=== PATIENT | female | born 1980 | race African-American/Black ===

== ENCOUNTER 2016-11-21 09:45 | Inpatient (IN) | payer OTHER ==
[~2016-11-21] VITALS: Ht 162.6 cm; Wt 81.6 kg
[2016-11-21] MEDS ORDERED: PRENATAL TABLE1 EAC2 PO (12:03)
--- NOTE | 2016-11-21 12:19 | History & Physical ---
General Information and HPI MD Statement: I have seen and personally examined GINNY WOOD and documented this H&P. The patient is a 36 year old female at [40] weeks and [4] days gestation who presented with a chief complaint of [ 3 para 2 woman with cervical dilation of 3-4 cm's who is past her due date was advised for induction of labor ]. Source of Information: patient, old records History of Present Illness: 36-year-old 2 para 2001 LMP of 02/11/2016 and KALA of 11/17/2016 was admitted at 40-4/7 weeks for induction of labor due to the fact that her last office exam she was 3-4 cm dilated. Issues for this #1 AMA. Her age is age 36. She had ATU anatomy scan that was within normal limits she's had weekly biophysical nonstress tests since 35 weeks that have been reassuring #2 on at 30 weeks measured size less than dates on ultrasound at that time showed her to be 44th percentile. 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 10 oz. 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 Home Who Do You Live With? spouse, child Primary Language: [place] Smoking Status: Never Smoked ETOH Use: denies use Illicit Drug Use: denies illicit drug use Review of Systems Review of Systems: Negative for cardiopulmonary GI complaints Exam & Diagnostic Data Last 24 Hrs of Vital Signs/I&O Temp 98.4 pulse 88 respirations 16 blood pressure 122/82 pulse ox 99% room air Intake & Output 11/21 1600 / 0800 11/21 0000 Intake Total Output Total Balance Patient 180 lb Weight Obstetric Exam Wgt Gained During : 32 pounds Pelvimetry: Proven 7 pounds Dilation (cm): 3 Effacement (%): 80 Station: 0 Membranes: intact Fluid: unknown Fundal Height (cm): 38 Multiple Gestation? No Contractions: Every 4-6 on her own #1 - FHR Baseline: 130 Category: 1 Estimated Weight: 7 lbs. 2 oz. Presentation: Vertex Patient for Induction? Yes Davenport Score Davenport Score Response Value Cervix Position: posterior 0 Cervix Consistency: soft 2 Cervix Effacement: >80% 3 Cervix Dilation: 3-4 cm 2 Cervix Station: -2 1 Total 8 Physical Exam General Appearance Alert, Oriented X3, Cooperative, No Acute Distress Skin No Significant Lesion Cardiovascular Regular Rate Lungs Normal Air Movement Abdomen Normal Bowel Sounds, Soft, No Tenderness, No Hepatospenomegaly, gravid uterus fundal height 38 cm's estimated weight 7 lbs. 2 oz. vertex presentation heart rate 130s category 1 occasional mild contraction Neurological Normal Gait, Normal Speech Extremities No Tenderness/Swelling Reproductive (FEMALE) Normal female genitalia Labs Blood Type & Rh: B+ Antibody Screen: N Hct/Hgb & Platelets #1: 12.3/36.7, platelet count 212,000 Hct/Hgb & Platelets #2: 12.0/37.3 platelet count 212,000 Rubella: I VDRL #1: N VDRL #2: N HbsAg: N HIV #1: N HIV #2 N 1 Hr P 3 Hr PG: N/A Group B Strep: N Initial Ultrasound: 06/03/2016's single intrauterine 16 weeks 1/7 days size equals dates equals ultrasound Anatomy Ultrasound: ATU anatomy scan 07/01/2016 20 weeks 1/7 days negative aneuploidy cervix 3.7 scans normal ovaries NL uterus Ultrasound for EFW: At 32. She measured size less than dates growth percentile showed her to be 45th percentile for pounds 3 ounces Genetic Testing: Declined invasive testing missed first trimester screen but had a negative quad screening Last 24 Hrs of Labs/Sylvain: Laboratory Tests 11/21/16 1000: CBC w Diff Pending, WBC Pending, RBC Pending, Hgb Pending, Hct Pending, MCV Pending, MCH Pending, RDW Pending, Plt Count Pending, MPV Pending, PUBS MCHC Pending, Urine Color Pending, Urine Clarity Pending, Urine pH Pending, Ur Specific [place] Pending, Urine Protein Pending, Urine Ketones Pending, Urine Nitrite Pending, Urine Bilirubin Pending, Urine Urobilinogen Pending, Ur Leukocyte Esterase Pending, Ur Microscopic SEDIMENT EXAMINED, Urine RBC Pending, Urine Hemoglobin Pending, Urine Glucose Pending Assessment/Plan Assessment/Plan: Interim at 40 weeks 4/7 days with advanced cervical dilation a 3 para 2. Plan is induction of labor with Pitocin and AROM when clinically safe. Patient is group B strep negative should not require antibiotic prophylaxis in labor. Plan is anticipate normal vaginal delivery As Ranked By This Provider Problem List: 1. 2. Post-dates Core Measures/Miscellaneous Venous Thromboembolism VTE Risk Factors: / VTE Contraindications: Abn Clotting Times (FALL RISK) VTE Diagnosis: No Beta Emilia Is Beta Emilia a Home Med? No If No, Why Not? NOT INDICATED Antibiotics Is Patient on Antibiotics? No Attending MD Review Statement Attending Statement Attending MD Statement: examined this patient, discussed with family, reviewed EMR data (avail), discussed w/nursing Attending Assessment/Plan: Katelynn Edgar
[2016-11-21 12:40] LABS: ABSOLUTE BASOPHIL COUNT 0 /CUMM (0.0-0.2); ABSOLUTE EOSINOPHIL COUNT 0.1 /CUMM (0.0-0.7); ABSOLUTE GRANULOCYTE CT 4.8 /CUMM (1.4-6.5); ABSOLUTE LYMPH COUNT 1.1 /CUMM (1.2-3.4); ABSOLUTE MONOCYTE COUNT 0.8 /CUMM (0.10-0.60); BASOPHIL % 0.6 % (0.0-2.0); EOSINOPHIL % 1.5 % (0-5); GRANULOCYTE % 69.9 % (42.2-75.2); HEMATOCRIT 36.2 % (37-47); MEAN CORPUSCULAR HGB 29.1 PG (27.0-31.0); MEAN CORPUSCULAR HGB CONC 33.4 G/DL (33.0-37.0); MEAN CORPUSCULAR VOLUME 87.2 FL (81.0-99.0); MEAN PLATELET VOLUME 9.1 FL (7.4-10.4); PLATELET COUNT 185 /CUMM (130-400); RBC DISTRIBUTION WIDTH 14.6 % (11.5-14.5); RED BLOOD CELL CT 4.15 /CUMM (4.20-5.40); WHITE BLOOD CELL COUNT 6.8 /CUMM (4.8-10.8)
--- NOTE | 2016-11-21 15:21 | PN- OBGYN ---
Surgical Brief Attending Note Brief Attending Note: Update: Pt doing well - tolerating contractions just fine Pitocin @ 7 mu contractions Q 2 to 3 min FHR 140's Cat 1 Cx 5 cm 100% 0 station AROM: Clear fluid Progress in Labor: Anticipate MAYNOR Edgar MD
--- NOTE | 2016-11-21 18:30 | Labor & Delivery Summary ---
Delivery Summary Vaginal Delivery: Vaginal: vertex spontaneous delivery Episiotomy/Lacerations: Episiotomy/Lacerations: nikita-urethral lacerations - bilateral no suture needed Type: periurethral Repair: none Anesthesia: none Placenta: Placenta: spontanteous, normal, 3 vessel, Short cord Anesthesia: none Cord PH Value: n/a Baby's Weight: 7#7oz Apgars - 1 Min: 9 Apgars - 5 Min: 9 Additional Comments: Pt progressed to fully @ 16:55 with the urge to push. Pt initially was not effective with the pushing efforts. Decrease in FHR from 140 -150 to 90 - 100's x 6 to 7 minutes. (pitocin turned off, change in maternal positioning, O2 by mask) VTX stayed @ +2 / +3 station. Discussed possible need for vacuum extraction if not push well with the "next" contraction. Pt delivered the VTX with the next contraction, No Nuchal cord. Short umbilical cord. Time of delivery 16:55. Intact perineum. bilat small nikita-urethral lacerations- no suture needed. Live viable female. 7#7oz APGARS 9/9/9 Placenta delivered intact NL configuration - short cord- 3 VC. No cervical or vaginal lacerations ERLIN SALGADO MD
--- NOTE | 2016-11-21 20:38 | PN- OBGYN ---
Surgical Brief Attending Note Brief Attending Note: CTSP: MINIMAL BLEEDING PP BUT THEN AN EVAL BY THE RN @ 18:45, SHOWED UTERUS ABOVE UMBILICUS AND ++ VAGINAL BLEEDING WITH FUNDAL PRESSURE - "GRAPEFRUIT" SIZED CLOT WITH FUNDAL PRESSURE. UPPER UTERUS FIRM TO PALPATION. PULSE IN LABOR IN 80'S, PT'S PP PULSE NOW IN 90'S WITH A NL BP. MD EXAM SHOWED LARGE AMOUNT OF CLOT DISTENDING THE UPPER VAGINA. CLOT CLLEARED FORM VAGINA AND LOW SEGMENT - @ 1000ML. GAUTAM CATHETER PLACED- (50 ml JORDIN URINE). NEW IV STARTED (PT INADVERTENTLY PULLED OUT HER IV @ DELIVERY - WAS GIVEN 10 U IM PITOCIN, PP). PT WAS GIVEN 200 mcg METHERGINE, PITOCIN @ 30 U/1000ML @ 200 ML/HR, AND [address] LYNCH CALLED, IN CASE WE HAD TO GO BACK TO THE OR. DR LYNCH STARTED A SECOND IV SITE AND PT GIVEN 1000 ML BOLUS OVER 30 MIN. NO SIGNIFICANT FURTHER BLEEDING NOTED. VAGINAL EXAM SHOWED NO CLOT COLLECTION IN THE VAGINA. MATERNAL PULSE NOW 60 -70'S. BP 118/70 URINE OUTPUT 150 ML IN LAST HR PP HEMORRHAGE DUE TO LOW SEGMENT ATONY. PT STABLE W/ PULSE, BP AND URINE OUTPUT. CONTINUE IV PITOCIN OVER NIGHT CK CBC @ 10 PM AND AGAIN @ 6 AM ERLIN SALGADO MD
[2016-11-21 22:40] LABS: ABSOLUTE BASOPHIL COUNT 0 /CUMM (0.0-0.2); ABSOLUTE EOSINOPHIL COUNT 0 /CUMM (0.0-0.7); ABSOLUTE GRANULOCYTE CT 13.8 /CUMM (1.4-6.5); ABSOLUTE LYMPH COUNT 0.7 /CUMM (1.2-3.4); ABSOLUTE MONOCYTE COUNT 0.3 /CUMM (0.10-0.60); BASOPHIL % 0.1 % (0.0-2.0); EOSINOPHIL % 0.1 % (0-5); HEMATOCRIT 35.3 % (37-47); MEAN CORPUSCULAR HGB 28.9 PG (27.0-31.0); MEAN CORPUSCULAR HGB CONC 32.8 G/DL (33.0-37.0); MEAN CORPUSCULAR VOLUME 88.1 FL (81.0-99.0); MEAN PLATELET VOLUME 8.8 FL (7.4-10.4); PLATELET COUNT 177 /CUMM (130-400); RBC DISTRIBUTION WIDTH 14.5 % (11.5-14.5)
[2016-11-21 22:41] LABS: WHITE BLOOD CELL COUNT 14.8 /CUMM (4.8-10.8)
[2016-11-21 22:42] LABS: GRANULOCYTE % 93.3 % (42.2-75.2)
[2016-11-22 09:21] LABS: ABSOLUTE BASOPHIL COUNT 0 /CUMM (0.0-0.2); ABSOLUTE EOSINOPHIL COUNT 0 /CUMM (0.0-0.7); ABSOLUTE LYMPH COUNT 0.9 /CUMM (1.2-3.4); ABSOLUTE MONOCYTE COUNT 0.8 /CUMM (0.10-0.60); MEAN CORPUSCULAR HGB CONC 33.7 G/DL (33.0-37.0); MEAN PLATELET VOLUME 9.4 FL (7.4-10.4)
[2016-11-22 09:35] LABS: ABSOLUTE GRANULOCYTE CT 12.9 /CUMM (1.4-6.5); BASOPHIL % 0 % (0.0-2.0); EOSINOPHIL % 0.2 % (0-5); MEAN CORPUSCULAR HGB 29.2 PG (27.0-31.0); MEAN CORPUSCULAR VOLUME 86.7 FL (81.0-99.0); PLATELET COUNT 164 /CUMM (130-400); RED BLOOD CELL CT 3.32 /CUMM (4.20-5.40); WHITE BLOOD CELL COUNT 14.7 /CUMM (4.8-10.8)
[2016-11-22 09:38] LABS: HEMATOCRIT 28.8 % (37-47)
--- NOTE | 2016-11-22 10:29 | PN- OBGYN ---
Surgical Brief Attending Note Brief Attending Note: no complaints. doing well. has not yet ambulated yet. howe catheter still in place+nursing. denies SOB or chest pain VS: 90/50s. pulse 80s FF @ U-1 nontender no significant bleeding with fundal massage howe cather in place Laboratory Tests 11/22/16 0213: CBC w Diff Pending, WBC Pending, RBC Pending, Hgb Pending, Hct Pending, MCV Pending, MCH Pending, RDW Pending, Plt Count Pending, MPV Pending, Gran % Pending, Lymphocytes % Pending, Monocytes % Pending, Eosinophils % Pending, Basophils % Pending, Absolute Granulocytes Pending, Absolute Lymphocytes Pending , Absolute Monocytes Pending, Absolute Eosinophils Pending, Absolute Basophils Pending, PUBS MCHC Pending 11/21/16 2140: CBC w Diff NO MAN DIFF REQ, RBC 4.00 L, MCV 88.1, MCH 28.9, RDW 14.5, MPV 8.8, Gran % 93.3 H, Lymphocytes % 4.5 L, Monocytes % 2.0, Eosinophils % 0.1, Basophils % 0.1, Absolute Granulocytes 13.8 H, Absolute Lymphocytes 0.7 L, Absolute Monocytes 0.3, Absolute Eosinophils 0, Absolute Basophils 0, PUBS MCHC 32.8 L 11/21/16 1000: CBC w Diff NO MAN DIFF REQ, RBC 4.15 L, MCV 87.2, MCH 29.1, RDW 14.6 H, MPV 9.1, Gran % 69.9, Lymphocytes % 16.5 L, Monocytes % 11.5 H, Eosinophils % 1.5, Basophils % 0.6, Absolute Granulocytes 4.8, Absolute Lymphocytes 1.1 L, Absolute Monocytes 0.8 H, Absolute Eosinophils 0.1, Absolute Basophils 0, PUBS MCHC 33.4, Urine Color YEL, Urine Clarity HAZY H, Urine pH 6.5, Ur Specific [place] 1.020, Urine Protein 30 H, Urine Ketones NEG, Urine Nitrite NEG, Urine Bilirubin NEG, Urine Urobilinogen 1.0, Ur Leukocyte Esterase SMALL H, Ur Microscopic SEDIMENT EXAMINED, Urine RBC 3-5, Urine WBC 15-25 H, Ur Epithelial Cells MANY H, Urine Bacteria MANY H, Urine Hemoglobin SMALL H, Urine Glucose NEG a/p PPD 1. h/o PPH. bleeding stabilized. Pt does not appear orthostatic. \vitals stable . awaiting am h/h . per verbal from Dr. Edgar hgb 9 will confirm and most likely remove howe and see how does with ambulation. routine pp care.
[2016-11-22 10:43] LABS: GRANULOCYTE % 87.7 % (42.2-75.2)
[2016-11-23] MEDS ORDERED: IBUPROFEN800 M1 PO (13:17)
[2016-11-23] MEDS ORDERED: FERROUS SULFAT325 M3 PO (13:17)
--- NOTE | 2016-11-23 14:00 | PN- Post Delivery/GYN ---
Subjective Subjective: Ready for discharge home Review of Systems: Neg for Cardiac GI Pulmonary complaints Objective Last 24 Hrs of Vital Signs/I&O Afebrile VSS Physical Exam General Appearance Alert, Oriented X3, Cooperative, No Acute Distress Skin No Significant Lesion Cardiovascular Regular Rate Lungs Normal Air Movement Abdomen Normal Bowel Sounds, Soft, No Tenderness, No Hepatospenomegaly, Uterus firm midline 2 to 3 FB below umbilicus nontender Avge Lochia Neurological Normal Gait, Normal Speech Extremities No Tenderness/Swelling Reproductive (FEMALE) Normal female genitalia Current Medications: Current Medications Sig/Jesusita Start time Last Medication Dose Route Stop Time Status Admin Acetaminophen 650 MG Q4P PRN 11/21 1800 AC PO Docusate Sodium 100 MG BID PRN 11/21 1800 AC PO Hydroxyzine HCl 100 MG AT BEDTIME NEED.. 11/21 1800 AC PO Ibuprofen 800 MG .STK-MED ONE 11/23 0400 DC PO 11/23 0401 Ibuprofen 800 MG .STK-MED ONE 11/22 1756 DC PO 11/22 1757 Ibuprofen 800 MG Q6P PRN 11/21 1800 AC 11/23 PO 1051 Oxycodone/ 1 TAB Q3P PRN 11/21 1800 AC Acetaminophen PO Last 24 Hrs of Labs/Sylvain: admission H/H 12.1/38 POD #1) 9.7/ 28.8 Assessment/Plan Assessment/Plan Stable PPD #2 after - PP complicated by @ 1500 ml PP blood loss tdue to low segment atony - managed by IV Pitocin, Methergine, Hemabate Pt clinically well compensated RX @ HOME PN VITS/ IRON/ MOTRIN/ STOOL SOFTENERS PRN Problem List: 1. 2. Post-dates 3. Term of female 4. Anemia associated with acute blood loss 5. atony of uterus with hemorrhage, Attending MD Review Statement Attending Statement Attending MD Statement: examined this patient, agreed w/resident/PA/CONCRETE PUDDLER, reviewed EMR data (avail), discussed with nursing Attending Assessment/Plan: Teodora SALGADO MD
== END 2016-11-23 13:45 | DRG 774 ==
LOC: GNO 09:45
PROVIDERS: Obstetrics & Gynecology; ADMIT Obstetrics & Gynecology
PROC: 3E033VJ Introduction of Other Hormone into Peripheral Vein, Percutaneous Approach (ICD-10-PCS; principal; 2016-11-21)
PROC: 10E0XZZ Delivery of Products of Conception, External Approach (ICD-10-PCS; principal; 2016-11-21)
PROC: 3E033VJ Introduction of Other Hormone into Peripheral Vein, Percutaneous Approach (ICD-10-PCS; 2016-11-21)
DX: O48.0 Post-term pregnancy (principal); O72.1 Other immediate postpartum hemorrhage; D62 Acute posthemorrhagic anemia; Z3A.40 40 weeks gestation of pregnancy; Z37.0 Single live birth; O71.82 Other specified trauma to perineum and vulva; O09.523 Supervision of elderly multigravida, third trimester
CPT/HCPCS: GNOP; 36415; 81001; J1885; J2210; J7120